=== PATIENT | female | born 1995 | race Caucasian/White ===

== ENCOUNTER 2017-01-02 16:37 | Observation (INO) | payer OTHER ==
[2017-01-02 18:20] LABS: Hematocrit 40 % (35-47); Hemoglobin 13.3 g/dl (12.0-16.0); Mean Corpuscular HGB Conc 33 g/dl (31-36); Mean Corpuscular Hemoglobin 31 pg (27-31); Mean Corpuscular Volume 95 fL (80-97); Mean Platelet Volume 8 um3 (7.4-10.4); Red Blood Count 4.25 10^6/ul (4.0-5.4); Red Cell Distribution Width 12 % (10.5-15); White Blood Count 5.4 10^3/ul (3.5-10.8)
[2017-01-02 18:37] LABS: ALT 15 U/L (7-52); AST 15 U/L (13-39); Albumin 4.2 g/dL (3.2-5.2); Alkaline Phosphatase 59 U/L (34-104); Anion Gap 5 mmol/L (2-11); BUN/Creatinine Ratio 11.9 (8-20); Blood Urea Nitrogen 8 mg/dL (6-24); CO2 Carbon Dioxide 28 mmol/L (22-32); Calcium 9.2 mg/dL (8.6-10.3); Chloride 101 mmol/L (101-111); EGFR African American 144.3 (>60); EGFR Non-African American 112.2 (>60); Globulin 2.8 g/dL (2-4); Glucose 79 mg/dL (70-100); Lipase 27 U/L (11.0-82.0); Potassium 3.5 mmol/L (3.5-5.0); Sodium 134 mmol/L (133-145)
--- NOTE | 2017-01-02 19:13 | RAD ---
Indication: Right lower quadrant pain. Graded compression sonography of the right lower quadrant was performed utilizing high frequency linear transducer. No evidence of tubular fluid-filled structure is noted to suggest appendicitis. Peristalsing bowel is noted. IMPRESSION: Appendix is not visualized.
[2017-01-02] MEDS ORDERED: Ondansetron INJ* 2 MG/ML VIAL IV ONE (19:41)
[2017-01-02] MEDS ORDERED: NS 0.9% 1000 ML* 2,000 ML IV ONE (19:41)
--- NOTE | 2017-01-02 20:47 | ED ---
Abdominal Pain/Female - HPI Summary HPI Summary: 21F presents with RLQ since yesterday. She states her pain started epigastric and moved to RLQ over the day today. She states the pain has been worsening and that going over bumps hurt her in her RLQ. She states she is very nauseous every time she eats. She admits to anorexia. Last meal at 5pm today. She states that movement makes it worst but her pain is fine if she sits still. She denies any dysuria, vaginal bleeding, vomiting, diarrhea, or constipation. She denies any fevers. She states that she has had this pain before when she had a bowel infection a year ago that need IV antibiotics. She denies any previous abdominal surgeries. She does not have a history of ovarian cysts. She denies any history of STDs. - History of Current Complaint Chief Complaint: EDAbdPain Stated Complaint: ABD PAIN Time Seen by Provider: 01/02/17 18:51 Pain Intensity: 5 Allergies/Adverse Reactions: Allergies Allergy/AdvReac Type Severity Reaction Status Date / Time No Known Allergies Allergy Verified 01/02/17 16:51 PMH/Surg Hx/FS Hx/Imm Hx Endocrine/Hematology History: Denies: Hx Anticoagulant Therapy Cardiovascular History: Denies: Hx Hypertension Infectious Disease History: No Infectious Disease History: Denies: Traveled Outside the [place] in Last 30 Days - Family History Known Family History: Positive: Hypertension - Social History Alcohol Use: None Substance Use Type: Reports: None Smoking Status (MU): Never Smoked Tobacco Review of Systems Negative: Fever Negative: Chest Pain Negative: Shortness Of Breath Positive: Abdominal Pain - RLQ, Nausea. Negative: Vomiting, Diarrhea All Other Systems Reviewed And Are Negative: Yes Physical Exam Triage Information Reviewed: Yes Vital Signs On Initial Exam: Initial Vitals Temp Pulse Resp BP Pulse Ox 98.5 F 92 18 112/61 98 01/02/17 16:46 01/02/17 16:46 01/02/17 16:46 01/02/17 16:46 01/02/17 16:46 Vital Signs Reviewed: Yes Appearance: Positive: Well-Appearing Skin: Positive: Warm, Dry Head/Face: Positive: Normal Head/Face Inspection Eyes: Positive: Normal, Conjunctiva Clear ENT: Positive: Normal ENT inspection, Pharynx normal, TMs normal Respiratory/Lung Sounds: Positive: Clear to Auscultation, Breath Sounds Present Cardiovascular: Positive: Normal, RRR Abdomen Description: Positive: Soft, Other: - moderate tenderness in RLQ, pos obturator, neg rovsings, no rebound Bowel Sounds: Positive: Present - Logan Coma Scale Coma Scale Total: 15 Diagnostics - Vital Signs Vital Signs Temp Pulse Resp BP Pulse Ox 01/02/17 18:42 99.3 F 77 18 100/62 100 01/02/17 16:46 98.5 F 92 18 112/61 98 - Laboratory Lab Results: Lab Results 01/02/17 01/02/17 Range/Units 18:05 18:05 WBC 5.4 (3.5-10.8) 10^3/ul RBC 4.25 (4.0-5.4) 10^6/ul Hgb 13.3 (12.0-16.0) g/dl Hct 40 (35-47) % MCV 95 (80-97) fL MCH 31 (27-31) pg MCHC 33 (31-36) g/dl RDW 12 (10.5-15) % Plt Count 265 (150-450) 10^3/ul MPV 8 (7.4-10.4) um3 Neut % (Auto) 63.7 (38-83) % Lymph % (Auto) 26.4 (25-47) % [place] % (Auto) 8.4 (1-9) % Eos % (Auto) 0.6 (0-6) % Baso % (Auto) 0.9 (0-2) % Absolute Neuts (auto) 3.4 (1.5-7.7) 10^3/ul Absolute Lymphs (auto) 1.4 (1.0-4.8) 10^3/ul Absolute Monos (auto) 0.5 (0-0.8) 10^3/ul Absolute Eos (auto) 0 (0-0.6) 10^3/ul Absolute Basos (auto) 0 (0-0.2) 10^3/ul Absolute Nucleated RBC 0 10^3/ul Nucleated RBC % 0.1 Sodium 134 (133-145) mmol/L Potassium 3.5 (3.5-5.0) mmol/L Chloride 101 (101-111) mmol/L Carbon Dioxide 28 (22-32) mmol/L Anion Gap 5 (2-11) mmol/L BUN 8 (6-24) mg/dL Creatinine 0.67 (0.51-0.95) mg/dL Est GFR ( Amer) 144.3 (>60) Est GFR (Non-Af Amer) 112.2 (>60) BUN/Creatinine Ratio 11.9 (8-20) Glucose 79 (70-100) mg/dL Calcium 9.2 (8.6-10.3) mg/dL Total Bilirubin 0.30 (0.2-1.0) mg/dL AST 15 (13-39) U/L ALT 15 (7-52) U/L Alkaline Phosphatase 59 (34-104) U/L C-React Prot High Sens 26.59 mg/L Total Protein 7.0 (6.4-8.9) g/dL Albumin 4.2 (3.2-5.2) g/dL Globulin 2.8 (2-4) g/dL Albumin/Globulin Ratio 1.5 (1-3) Lipase 27 (11.0-82.0) U/L Beta HCG, Quant < 0.60 mIU/mL Result Diagrams: 01/02/17 18:05 01/02/17 18:05 Lab Statement: Any lab studies that have been ordered have been reviewed, and results considered in the medical decision making process. - CT ab CT Interpretation: Positive (See Comments) - IMPRESSION: Findings consistent with that retrocecal acute appendicitis. No periappendiceal abscess is noted. CT Interpretation Completed By: Radiologist - Ultrasound No standard instances Ultrasound Interpretation: No Acute Changes - unable to see appendix Ultrasound Interpretation Completed By: Radiologist Re-Evaluation - Re-Evaluation First Eval Re-Evaluation Time: 22:20 Change: Improved Comment: no longer nausous, only in pain when moves, does not want pain medication Abdominal Pain Fem Course/Dx - Course Course Of Treatment: 21F presents with RLQ pain that started yesterday. It started as epigastric pain and moved to RLQ. admits to nausea and anorexia. no fevers. states movement makes in worst. tenderness in RLQ on exam. pos obturator. no rebound. wbc normal. crp 26. gave 2 liter of fluid and zofran and patient felt better. says as long as doesn't move does not need pain medication. CT shows retrocecal appendicitis. no abscess. called surgery dr sands and will admit to surgery and put on surgery schedule in morning. - Diagnoses Differential Diagnosis: Positive: Appendicitis, Ovarian Cyst, Urinary Tract Infection Provider Diagnoses: Appendicitis - Provider Notifications Discussed Care Of Patient With: Dr Sands Time Discussed With Above Provider: 23:22 - will admit to surgery and go to OR in morning. Discharge - Discharge Plan Condition: Stable Disposition: ADMITTED TO [facility] [Primary Care Provider] -
[2017-01-02] MEDS ORDERED: Iohexol 300* (CONTRAST) 10 ML SDV IV ONE (21:19)
--- NOTE | 2017-01-02 22:33 | RAD ---
Indication: Right lower quadrant pain. Contrast: Administered 60.0 ml of OMNIPAQUE 300 mgi/ml CT of the abdomen and pelvis was performed after oral and IV contrast history. Coronal and sagittal reconstructed images were obtained. Lung bases demonstrate no pleural fluid, nodules or masses. Heart is of normal size without evidence of pericardial effusion. Liver is normal in size. No focal lesions or intrahepatic ductal dilatation is noted. The common duct is not dilated. Gallbladder demonstrates no calcified gallstones. No pericholecystic fluid or wall thickening is identified. The spleen is normal in size. Pancreas demonstrates no mass or pancreatic duct dilatation. No adrenal masses are noted. The kidneys demonstrate symmetric nephrograms without evidence of focal lesions. Posterior to the right colon there is a tubular structure with some adjacent inflammation that is blind ending consistent with a thickened appendix. Findings are consistent with acute appendicitis. No periappendiceal abscess is noted. CT of the pelvis demonstrates no retroperitoneal or pelvic lymphadenopathy. The uterus and ovaries are unremarkable. No dilated loops of bowel are noted. IMPRESSION: Findings consistent with that retrocecal acute appendicitis. No periappendiceal abscess is noted.
[2017-01-02] MEDS ORDERED: Morphine INJ* 4 MG/ML 1 ML SYRINGE IV PRN (23:29)
[2017-01-02] MEDS ORDERED: Ondansetron INJ* 2 MG/ML VIAL IV PRN (23:31)
[2017-01-02] MEDS ORDERED: Morphine INJ* 2 MG/ML 1 ML SYRINGE IV PRN (23:36)
[2017-01-02] MEDS ORDERED: Morphine INJ* 4 MG/ML 1 ML SYRINGE IV SCH (23:45)
[2017-01-03] MEDS: ceFOXitin 2 GM IVPREMIX* 2 GM/50 ML BAG IVPB SCH ×2 (00:39→07:59)
[2017-01-03] MEDS ORDERED: Buffered Lidocaine 1% SYRIN* 3 ML/SYR SYRINGE INTRADERM ONE (07:48)
[2017-01-03] MEDS ORDERED: Famotidine IV* 10 MG/ML 2 ML (20 mg) IV ONE (09:00)
--- NOTE | 2017-01-03 09:51 | HP ---
DATE OF ADMISSION: 01/02/17 ATTENDING SURGEON: Dr. Humberto Hebert (dictated by NELIDA Reeves) CHIEF COMPLAINT: Abdominal pain. HISTORY OF PRESENT ILLNESS: This is a 21-year-old generally healthy female who began to notice some lower abdominal cramping pain early Sunday afternoon. This continued through the evening and she later found it hard to stand up straight because of the pain. She noticed Sunday morning that the pain had moved to the right lower quadrant and was increased with walking and activity. It was associated with anorexia and nausea, but she denies any vomiting. She has had diarrhea x3 since admission. She denies fever or chills. She has felt generally tired. She denies any or OUTSOLE HANDLER symptoms. She states that she had a similar episode last summer, and was evaluated. CT at that time was unrevealing. PAST MEDICAL HISTORY: She is treated for depression and anxiety. PAST SURGICAL HISTORY: Her only previous surgery is wisdom teeth extraction. CURRENT MEDICATIONS: 1. Junel ( control pill). 2. Prozac 40 mg once daily. 3. Lamictal 150 mg once daily. DRUG ALLERGIES: None known. FAMILY HISTORY: Negative for anesthesia problems, bleeding, or clotting disorders. SOCIAL HISTORY: The patient is an [employer] student. She denies use of tobacco, alcohol or recreational drugs. REVIEW OF SYSTEMS: General: No recent constitutional symptoms or other acute illnesses. Cardiovascular: No chest pain, palpitations, history of heart murmur. Respiratory: No history of asthma, chronic cough or shortness of breath. GI: As above, per HPI. : She denies dysuria or hematuria or increased urinary frequency. OUTSOLE HANDLER: No problems reported. Endocrine: No diabetes or thyroid dysfunction. PHYSICAL EXAMINATION GENERAL: Well-nourished, well-developed female in no acute distress. Skin warm and dry, no rashes or lesions. VITAL SIGNS: Height 5 feet, weight 100 pounds. She is afebrile, and vital signs were reviewed and stable. HEENT: Pupils are equal and round, reactive. EOMs intact. No conjunctival pallor. Oropharynx: Mucous membranes moist. No intraoral lesions. NECK: No lymphadenopathy, thyromegaly, or masses. LUNGS: Clear to auscultation. No wheezes. HEART: Regular rate and rhythm. No murmur noted. ABDOMEN: Bowel sounds somewhat hypoactive. Flat and non-distended, soft, with moderate tenderness to palpation in the right lower quadrant. The remainder of the abdomen is soft and non-tender. No palpable masses or organomegaly. GENITALIA and RECTAL: Not done. BACK: No spinous process or CVA tenderness. EXTREMITIES: No edema. LABORATORY OF NOTE: White blood cell count 5,400, hemoglobin 13.3. P3 is normal. CRP is elevated at 27. HCG less than 0.6. CT scan of the abdomen and pelvis was read as being consistent with retrocecal acute appendicitis. No abscess was noted. No other significant findings. IMPRESSION: Acute appendicitis. PLAN: Laparoscopic appendectomy. Patient will be seen and examined for confirmation by Dr. Hebert. NELIDA CHOI CC: [facility] * [id number]/CPS #: [id number] GLADYS
[2017-01-03] MEDS ORDERED: Famotidine IV* 10 MG/ML 2 ML (20 mg) ONE (10:13)
[2017-01-03] MEDS ORDERED: Bupivacaine 0.5% W/EPI SDV* 30 ML VIAL ONE (11:01)
[2017-01-03] MEDS ORDERED: Dexamethasone IV* 6 MG in NS 0.9% 50 ML* 50 ML IVPB ONE (11:06)
[2017-01-03] MEDS ORDERED: Dexamethasone IV* 4 MG/ML 1 ML (4 MG) ONE (11:08)
[2017-01-03] MEDS ORDERED: Midazolam* 1 MG/ML 2 ML VIAL (2 MG) ONE (11:12)
[2017-01-03] MEDS ORDERED: fentaNYL* 50 MCG/ML 2 ML VIAL (100 MCG VIAL) ONE ×2 (11:12→11:53)
[2017-01-03] MEDS ORDERED: fentaNYL* 50 MCG/ML 2 ML VIAL (100 MCG VIAL) IV PRN (11:14)
[2017-01-03] MEDS ORDERED: HYDROcodone/ACETAMIN 5-325 MG* 1 TAB PO PRN (11:14)
[2017-01-03] MEDS ORDERED: PROCHLORPERAZINE INJ 5 MG/ML 2 ML VIAL IV PRN (11:14)
[2017-01-03] MEDS ORDERED: ceFOXitin 2 GM IVPREMIX* 2 GM/50 ML BAG ONE (11:25)
[2017-01-03] MEDS ORDERED: Lidocaine 2% PF* 5 ML VIAL ONE (11:35)
[2017-01-03] MEDS ORDERED: Propofol* 10 MG/ML 20 ML BTL IV PUSH ONE (11:35)
[2017-01-03] MEDS ORDERED: Ondansetron INJ* 2 MG/ML VIAL ONE (11:50)
[2017-01-03] MEDS ORDERED: Phenylephrine IV* 40 MCG/ML 10 ML SYRINGE ONE (11:51)
[2017-01-03] MEDS ORDERED: Ketorolac INJ* 30 MG/ML 1 ML VIAL ONE (11:54)
[2017-01-03] MEDS ORDERED: EPHEDrine (Pressors)* 50 MG/ML VIAL ONE (12:07)
[2017-01-03] MEDS ORDERED: oxyCODONE/Acetamin 5/325 MG* TAB PO PRN (12:22)
[2017-01-03] MEDS ORDERED: Ibuprofen TAB* 600 MG PO PRN (12:22)
--- NOTE | 2017-01-03 12:31 | SURGPN ---
Brief Operative Note - Surgery Procedures: PREOP/POSTOP DX: ACUTE APPENDICITIS PROC: LAP APPENDECTOMY SURG: MECENAS ASSIST: NONE ANES: GET/GRETCHEN EBL: MIN SPEC: APPENDIX DRAIN/COMPL: NONE COND: STABLE TO RR
[2017-01-03 13:37] VITALS: BP 121/86
--- NOTE | 2017-01-13 03:41 | OP ---
DATE OF OPERATION: 01/03/17 - ROOM #347 DATE OF : [birth year] SURGEON: Humberto Hebert MD DISPATCH MACHINE RUNNER: None. ANESTHESIOLOGIST: Dian Dorado MD ANESTHESIA: General endotracheal. PRE-OP DIAGNOSIS: Acute appendicitis. POST-OP DIAGNOSIS: Acute appendicitis. OPERATIVE PROCEDURE: Laparoscopic appendectomy. ESTIMATED BLOOD LOSS: Minimal. IV FLUIDS: Crystalloid. SPECIMEN: Appendix. DRAINS: None. COMPLICATIONS: None. COUNTS: Instrument, needle, and sponge counts were correct. DESCRIPTION OF PROCEDURE: The patient was brought to the operating room and placed on table supine. Sequential compression devices were placed on both lower extremities. General anesthesia was administered. The abdomen was prepped and draped in the usual sterile fashion. She received appropriate antibiotics and a time-out was performed. Local anesthetic was infiltrated into the skin and soft tissue prior to making each incision. Entry to the abdomen was through a transumbilical vertical incision made to accommodate a 12-mm trocar. After accessing the peritoneal cavity and placing a 12-mm trocar, carbon dioxide was insufflated to a pressure of 15 mmHg. Under direct visualization, addition 5-mm trocars were placed suprapubically and in the left lower quadrant. The inspection of the right lower quadrant revealed the appendix, which was mildly inflamed with no evidence of suppurative changes. The appendix was elevated and due to the small size, the appendix was able to be divided with a single firing of the Endo LEILANI stapler to divide both the mesentery of the appendix and the appendix itself at the base of the cecum. The specimen was then placed into a retrieval bag and retrieved through the umbilical port site. The staple line was inspected and noted to be intact and hemostatic. The ports were then removed under direct visualization. Carbon dioxide was released. The umbilical wound was closed with 0 Polysorb in a [id number] fashion to approximate the fascia. Skin incisions were closed with 4-0 Monocryl in a subcuticular fashion. DermaFlex was applied to the wounds and Steri-Strips to 5-mm port sites. The patient tolerated the procedure well, was extubated and transferred to the Recovery in stable condition. CC: [facility]* [id number]/CPS #: [id number] MTDD
--- NOTE | 2017-01-13 04:25 | DS ---
DISCHARGE SUMMARY: DATE OF ADMISSION: 01/02/17 DATE OF DISCHARGE: 01/03/17 DISCHARGE DIAGNOSIS: Acute appendicitis. PROCEDURE: Laparoscopic appendectomy on 01/03/17. 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 She completed CT scan through the emergency department, which was diagnostic of retrocecal acute appendicitis. The patient was therefore admitted to the hospital, placed on IV antibiotics, and scheduled for an emergent laparoscopic appendectomy. Please refer to the operative report for the details. Postoperatively, the patient did well. She was transferred to the recovery room and from there was discharged home. She was provided with a preprinted discharge instructions received from the [facility] office and asked to follow up in the office 1 week postop. She was prescribed Percocet 1 every 4 hours with pain and she was advised to continue her oral contraceptive, Lamictal, and fluoxetine. Pending test was the pathology of the appendix, which subsequently did reveal acute appendicitis and periappendicitis. CC: Dr. Maribel Connor, [facility] * [id number]/[facility] #: [id number] [facility]
== END 2017-01-03 13:37 | disposition home or self-care (01) ==
LOC: ED 16:37 → SSU 23:38
PROVIDERS: ADMIT Surgery; ATTEND Surgery
PROC: 0DTJ4ZZ Resection of Appendix, Percutaneous Endoscopic Approach (ICD-10-PCS; principal; 2017-01-02)
DX: K35.80 Unspecified acute appendicitis (principal); Z32.02 Encounter for pregnancy test, result negative
CPT/HCPCS: 36415; 74177; 76705; 80053; 83690; 84702; 85025; 86141; 88304; 96365; 96375; 99284; C1776; G0378; J0694; J1100; J1885; J2250; J2405; J2704; J3010; Q9967